=== PATIENT | female | born 1965 | race Hispanic/Latino ===

== ENCOUNTER 2021-01-02 04:24 | Inpatient (IN) | payer OTHER ==
[2021-01-02] MEDS ORDERED: Ketorolac Tromethamine 30 MG/ML VIAL ONE (04:31)
[2021-01-02 05:22] LABS: Hemoglobin 14.5 g/dL (12.0-16.0); Mean Corpuscular HGB CONC 32.7 g/dL (32.0-36.0); Mean Corpuscular Hemoglobin 29.8 pg (27.0-31.0); Mean Corpuscular Volume 91.1 fL (78.0-98.0); Mean Platelet Volume 7.6 fL (7.4-10.4); Platelet Count 522 thou/uL (130-400); RBC Distribution Width 12.2 % (11.5-14.5); Red Blood Cell (RBC) Count 4.87 mill/uL (4.20-5.40); White Blood Cell (WBC) Count 31.9 thou/uL (4.8-10.8)
[2021-01-02 05:25] LABS: ALT (SGPT) 14 U/L (8-55); AST (SGOT) 12 U/L (5-34); Albumin 3.6 g/dL (3.5-5.0); Alkaline Phosphatase 103 U/L (40-110); Anion Gap 11 mmol/L (10-20); BUN (Urea Nitrogen) 13 mg/dL (9.8-20.1); Band 4 % (5-11); Bilirubin, Total 0.5 mg/dL (0.2-1.2); Calc. Creatinine Clearance 0 mL/min (70-130); Calcium 10.4 mg/dL (7.8-10.44); Carbon Dioxide 33 mmol/L (22-29); Chloride 95 mmol/L (98-107); Globulin 3.7 g/dL (2.4-3.5); Glucose 292 mg/dL (70-105); Lipase 19 U/L (8-78); Lymphocytes 8 % (21-51); MDiff Complete? YES; Monocytes 4 % (0-10); Neutrophil 84 % (42-75); Platelet Morphology Comment Appears Increased; Potassium 3.6 mmol/L (3.5-5.1); Protein, Total 7.3 g/dL (6.0-8.3); RBC Morphology Normal; Sodium 135 mmol/L (136-145)
[2021-01-02] MEDS ORDERED: Cefepime 2 GM VIAL ONE (05:33)
[2021-01-02 08:16] LABS: Troponin I 0.016 ng/mL (< 0.028)
[2021-01-02 09:15] LABS: Bacteria/HPF None Seen HPF (None Seen); Bilirubin Negative (Negative); Blood, Urine Negative (Negative); Clarity Clear (Clear); Glucose, Urine (Dipstick) Normal (Negative); Ketone, Urine Negative (Negative); Leukocyte Negative Leu/uL (Negative); Nitrite Negative (Negative); Protein, Urine (Dipstick) 70 mg/dL (Neg-Trace); Squamous Epithelial 0-3 HPF (0-3); Urobilinogen Normal mg/dL (Less than 2); WBC/HPF None Seen HPF (0-3); pH, Urine 6.5 (5.0-9.0)
[2021-01-02 09:17] LABS: Specific Gravity, Urine 1.064 (1.002-1.036)
[2021-01-02] MEDS ORDERED: Acetaminophen 325 MG TAB PO PRN (09:17)
[2021-01-02] MEDS ORDERED: methylPREDNISolone Sod Succ 40 MG VIAL IVP SCH (09:30)
[2021-01-02 09:38] LABS: SARS-CoV-2 NAA Rapid Test Not Detected (NotDetected)
[2021-01-02 09:41] LABS: Actual Bicarbonate (HCO3a) 26.9 mEq/L (22-28); Analyzer IN Cardio ER; Base Excess (BEa) 3.1 mEq/L (-2.0 to +3.0); CO2 Tension 38.1 mmHg (35.0-45.0); Calcium, Ionized (arterial) 1.25 mmol/L (1.12-1.30); Carboxyhemoglobin (COHb) 1.2 gm% (0.0-3.0); Hemoglobin (Hb) 14.9 g/dL (12.0-16.0); pH, Arterial 7.47 (7.35-7.45)
[2021-01-02 09:47] LABS: ALV-art Gradient 48.405 mmHg (0-20); O2 Tension (PaO2), arterial 53.7 mmHg (80.0-100.0); Puncture Site LRA
[2021-01-02 10:14] LABS: Cocaine Metabolite Screen Not Detected (NotDetected); Medtox Reader # READER 1; Methamphetamine Detected (NotDetected); Phencyclidine (PCP) Not Detected (NotDetected); THC/Cannabinoid Screen Not Detected (NotDetected)
[2021-01-02 10:15] LABS: Amphetamine Detected (NotDetected); Barbiturates Screen Not Detected (NotDetected); Benzodiazepine Screen Detected (NotDetected); Medtox Control Line Valid? VALID (VALID); Methadone Not Detected (NotDetected); Opiate Screen Not Detected (NotDetected); Oxycodone Screen Not Detected (NotDetected); Tricyclic Screen Not Detected (NotDetected)
[2021-01-02 10:25] LABS: Lactic Acid 2.3 mmol/L (0.5-2.2)
[2021-01-02] MEDS ORDERED: methylPREDNISolone Sod Succ 40 MG VIAL ONE (11:44)
[2021-01-02] MEDS: Sodium Chloride 0.9% 1,000 ML IV SCH ×2 (11:51→23:18)
[2021-01-02 12:18] LABS: Troponin I Less than 0.010 ng/mL (< 0.028)
[2021-01-02] MEDS: Nicotine 14 MG PATCH TD SCH (13:14)
[2021-01-02] MEDS ORDERED: Acetaminophen 325 MG TAB ONE (13:26)
[2021-01-02] MEDS ORDERED: Iopamidol 370 76% 100 ML VIAL ONE (14:47)
[2021-01-02] MEDS: Cefepime 2 GM in Sodium Chloride 0.9% 100 ML IVPB SCH (18:00)
[2021-01-02] MEDS: methylPREDNISolone Sod Succ 40 MG VIAL IVP SCH (18:01)
[2021-01-02] MEDS: Vancomycin HCl 1.25 GM in Sodium Chloride 0.9% 250 ML 250 ML IVPB SCH (19:06)
[2021-01-03] MEDS: methylPREDNISolone Sod Succ 40 MG VIAL IVP SCH ×4 (00:15→18:22)
[2021-01-03 04:18] LABS: Hemoglobin 14.2 g/dL (12.0-16.0); Mean Corpuscular HGB CONC 31.3 g/dL (32.0-36.0); Mean Corpuscular Hemoglobin 28.3 pg (27.0-31.0); Mean Corpuscular Volume 90.6 fL (78.0-98.0); Mean Platelet Volume 7.8 fL (7.4-10.4); Platelet Count 465 thou/uL (130-400); RBC Distribution Width 12.2 % (11.5-14.5); White Blood Cell (WBC) Count 25.8 thou/uL (4.8-10.8)
[2021-01-03 04:32] LABS: Anion Gap 13 mmol/L (10-20); BUN (Urea Nitrogen) 11 mg/dL (9.8-20.1); Calc. Creatinine Clearance 0 mL/min (70-130); Calcium 9.4 mg/dL (7.8-10.44); Carbon Dioxide 17 mmol/L (22-29); Chloride 103 mmol/L (98-107); Glucose 252 mg/dL (70-105); Potassium 4.1 mmol/L (3.5-5.1); Sodium 129 mmol/L (136-145)
[2021-01-03 04:38] LABS: Band 1 % (5-11); Lymphocytes 2 % (21-51); MDiff Complete? YES; Monocytes 1 % (0-10); Neutrophil 96 % (42-75); Platelet Morphology Comment Appears Increased
[2021-01-03] MEDS: Cefepime 2 GM in Sodium Chloride 0.9% 100 ML IVPB SCH ×2 (05:12→18:22)
[2021-01-03] MEDS: Vancomycin HCl 1.25 GM in Sodium Chloride 0.9% 250 ML 250 ML IVPB SCH ×2 (06:34→20:57)
[2021-01-03] MEDS: Sodium Chloride 0.9% 1,000 ML IV SCH ×2 (08:42→18:22)
[2021-01-03] MEDS: Nicotine 14 MG PATCH TD SCH (08:42)
[2021-01-03] MEDS: Acetaminophen 500 MG TAB PO PRN (18:27)
[2021-01-04] MEDS: methylPREDNISolone Sod Succ 40 MG VIAL IVP SCH ×5 (00:17→23:26)
[2021-01-04] MEDS: Sodium Chloride 0.9% 1,000 ML IV SCH ×2 (00:19→12:24)
[2021-01-04] MEDS: Vancomycin 1.5 GRAM/300 ML BAG 1.5 GM in Premix Bag 1 BAG IVPB SCH ×2 (03:48→16:44)
[2021-01-04] MEDS: Cefepime 2 GM in Sodium Chloride 0.9% 100 ML IVPB SCH ×2 (05:35→16:51)
[2021-01-04 05:51] LABS: Anion Gap 12 mmol/L (10-20); BUN (Urea Nitrogen) 10 mg/dL (9.8-20.1); Calc. Creatinine Clearance 0 mL/min (70-130); Calcium 9.2 mg/dL (7.8-10.44); Carbon Dioxide 23 mmol/L (22-29); Chloride 102 mmol/L (98-107); Glucose 245 mg/dL (70-105); Potassium 3.9 mmol/L (3.5-5.1); Sodium 133 mmol/L (136-145)
[2021-01-04 05:58] LABS: Band 8 % (5-11); Hemoglobin 14.2 g/dL (12.0-16.0); Lymphocytes 5 % (21-51); MDiff Complete? YES; Mean Corpuscular HGB CONC 30.7 g/dL (32.0-36.0); Mean Corpuscular Volume 91.1 fL (78.0-98.0); Mean Platelet Volume 7.9 fL (7.4-10.4); Monocytes 1 % (0-10); Neutrophil 86 % (42-75); Platelet Count 496 thou/uL (130-400); RBC Distribution Width 12.3 % (11.5-14.5); Red Blood Cell (RBC) Count 5.09 mill/uL (4.20-5.40); White Blood Cell (WBC) Count 27.7 thou/uL (4.8-10.8)
[2021-01-04] MEDS: Nicotine 14 MG PATCH TD SCH (08:25)
[2021-01-04] MEDS: Lorazepam 2 MG/ML VIAL SLOW IVP PRN ×2 (08:37→17:14)
[2021-01-04] MEDS ORDERED: hydrALAZINE 20 MG/ML VIAL SLOW IVP PRN (12:29)
[2021-01-04] MEDS ORDERED: Amlodipine 5 MG TAB PO SCH (12:45)
[2021-01-04] MEDS: Acetaminophen 500 MG TAB PO PRN (17:13)
[2021-01-04] MEDS ORDERED: Furosemide 40 MG/4 ML VIAL SLOW IVP SCH (18:30)
[2021-01-04] MEDS ORDERED: Furosemide 40 MG/4 ML VIAL ONE (18:36)
[2021-01-04] MEDS ORDERED: Senokot S 8.6-50 MG TAB PO PRN (20:49)
[2021-01-05] MEDS: Vancomycin 1.5 GRAM/300 ML BAG 1.5 GM in Premix Bag 1 BAG IVPB SCH ×2 (03:00→15:48)
[2021-01-05] MEDS: Cefepime 2 GM in Sodium Chloride 0.9% 100 ML IVPB SCH ×2 (04:29→15:47)
[2021-01-05] MEDS: methylPREDNISolone Sod Succ 40 MG VIAL IVP SCH ×3 (04:29→18:53)
[2021-01-05 08:11] LABS: Base Excess (BEa) 2.1 mEq/L (-2.0 to +3.0); CO2 Tension 38.6 mmHg (35.0-45.0); Calcium, Ionized (arterial) 1.23 mmol/L (1.12-1.30); Carboxyhemoglobin (COHb) 0.6 gm% (0.0-3.0); Hemoglobin (Hb) 16.4 g/dL (12.0-16.0); Potassium - ABG Lab 3.87 mmol/L (3.70-5.30); pH, Arterial 7.45 (7.35-7.45)
[2021-01-05 08:14] LABS: O2 Tension (PaO2), arterial 48.1 mmHg (80.0-100.0)
[2021-01-05 08:15] LABS: Puncture Site LRA
[2021-01-05 08:18] LABS: Hemoglobin 15.7 g/dL (12.0-16.0); Mean Corpuscular HGB CONC 30.8 g/dL (32.0-36.0); Mean Corpuscular Hemoglobin 27.7 pg (27.0-31.0); Mean Corpuscular Volume 90.2 fL (78.0-98.0); Mean Platelet Volume 7.7 fL (7.4-10.4); Platelet Count 567 thou/uL (130-400); RBC Distribution Width 12.5 % (11.5-14.5); Red Blood Cell (RBC) Count 5.66 mill/uL (4.20-5.40)
[2021-01-05] MEDS: Nicotine 14 MG PATCH TD SCH ×2 (08:30→09:23)
[2021-01-05] MEDS: Amlodipine 5 MG TAB PO SCH (08:30)
[2021-01-05] MEDS: Famotidine 20 MG TAB PO SCH ×2 (08:30→21:57)
[2021-01-05 08:39] LABS: Lymphocytes 1 % (21-51); MDiff Complete? YES; Monocytes 1 % (0-10); Neutrophil 98 % (42-75); Platelet Morphology Comment Appears Increased; RBC Morphology Normal
[2021-01-05 08:42] LABS: Anion Gap 12 mmol/L (10-20); BUN (Urea Nitrogen) 14 mg/dL (9.8-20.1); Calc. Creatinine Clearance 122 mL/min (70-130); Calcium 9.5 mg/dL (7.8-10.44); Carbon Dioxide 25 mmol/L (22-29); Chloride 101 mmol/L (98-107); Glucose 336 mg/dL (70-105); Potassium 3.9 mmol/L (3.5-5.1); Sodium 134 mmol/L (136-145)
[2021-01-05 09:07] LABS: SARS-CoV-2 NAA Rapid Test Not Detected (NotDetected)
[2021-01-05] MEDS ORDERED: Electrolyte Replacement Protocol 1 EACH FS PRN (14:45)
[2021-01-05] MEDS ORDERED: Potassium Phosphate 15 MMOL in Sodium Chloride 0.9% 250 ML 250 ML IVPB PRN (14:46)
[2021-01-05] MEDS ORDERED: Magnesium 2 GM/50 ML 2 GM in Premix Bag 1 BAG IVPB PRN (14:51)
[2021-01-05 15:25] LABS: Vancomycin, Trough 12.7 ug/mL
[2021-01-05] MEDS: Azithromycin 500 MG in Sodium Chloride 0.9% 250 ML 250 ML IVPB SCH (15:27)
[2021-01-05] MEDS: Lorazepam 2 MG/ML VIAL SLOW IVP PRN (15:32)
[2021-01-05 16:38] LABS: SARS-CoV-2 PCR by NAA Not Detected (NotDetected)
[2021-01-05 17:02] LABS: Legionella Urinary Ag Negative (Negative); Strep pneumo Urine Ag NEGATIVE (NEGATIVE)
[2021-01-05] MEDS ORDERED: Albuterol 200 PUFF (6.7GM INHALER) INH SCH (19:45)
[2021-01-05] MEDS: Mometasone 200 MCG/Formoterol 5 MCG 120 PUFF INHALER INH SCH (19:56)
[2021-01-05] MEDS: Budesonide 0.5 MG/2 ML NEB NEB SCH (19:57)
[2021-01-05] MEDS: Enoxaparin Sodium 40 MG/0.4 ML SYRINGE SC SCH (21:57)
[2021-01-05] MEDS: guaiFENesin ER 600 MG TAB PO SCH (21:57)
[2021-01-05] MEDS: Albuterol 200 PUFF (6.7GM INHALER) INH SCH (22:02)
[2021-01-06] MEDS: methylPREDNISolone Sod Succ 40 MG VIAL IVP SCH ×5 (00:04→23:08)
[2021-01-06] MEDS: Albuterol 200 PUFF (6.7GM INHALER) INH SCH ×6 (03:46→23:58)
[2021-01-06] MEDS: Vancomycin 1.5 GRAM/300 ML BAG 1.5 GM in Premix Bag 1 BAG IVPB SCH ×2 (03:46→16:11)
[2021-01-06 04:17] LABS: Anion Gap 11 mmol/L (10-20); BUN (Urea Nitrogen) 20 mg/dL (9.8-20.1); Calc. Creatinine Clearance 122 mL/min (70-130); Calcium 8.9 mg/dL (7.8-10.44); Carbon Dioxide 25 mmol/L (22-29); Chloride 103 mmol/L (98-107); Glucose 318 mg/dL (70-105); Sodium 135 mmol/L (136-145)
[2021-01-06] MEDS: Cefepime 2 GM in Sodium Chloride 0.9% 100 ML IVPB SCH ×2 (05:24→18:10)
[2021-01-06 05:33] LABS: Band 4 % (5-11); Hemoglobin 14.2 g/dL (12.0-16.0); Lymphocytes 3 % (21-51); MDiff Complete? YES; Mean Corpuscular HGB CONC 30.9 g/dL (32.0-36.0); Mean Corpuscular Volume 90.8 fL (78.0-98.0); Mean Platelet Volume 7.9 fL (7.4-10.4); Monocytes 3 % (0-10); Neutrophil 90 % (42-75); Platelet Count 512 thou/uL (130-400); RBC Distribution Width 12.5 % (11.5-14.5); Red Blood Cell (RBC) Count 5.08 mill/uL (4.20-5.40); White Blood Cell (WBC) Count 22.3 thou/uL (4.8-10.8)
[2021-01-06] MEDS: Budesonide 0.5 MG/2 ML NEB NEB SCH ×2 (07:57→18:57)
[2021-01-06] MEDS: Folic Acid 1 MG TAB PO SCH (08:03)
[2021-01-06] MEDS: guaiFENesin ER 600 MG TAB PO SCH ×2 (08:03→20:19)
[2021-01-06] MEDS: Famotidine 20 MG TAB PO SCH ×2 (08:03→20:19)
[2021-01-06] MEDS: Thiamine 100 MG TAB PO SCH (08:03)
[2021-01-06] MEDS: Amlodipine 5 MG TAB PO SCH (08:03)
[2021-01-06] MEDS: Mometasone 200 MCG/Formoterol 5 MCG 120 PUFF INHALER INH SCH ×2 (08:25→18:56)
[2021-01-06] MEDS ORDERED: cloNIDine 0.1 MG TAB PO SCH (09:00)
[2021-01-06] MEDS ORDERED: Lantus 1000 UNITS/10 ML VIAL SC SCH (09:00)
[2021-01-06] MEDS ORDERED: HumaLOG 300 UNITS/3 ML VIAL SC PRN (09:33)
[2021-01-06] MEDS ORDERED: Dextrose 5% in Water 1,000 ML IV PRN (09:33)
[2021-01-06] MEDS ORDERED: Dextrose 50% Abboject 50 ML SYRINGE SLOW IVP PRN (09:33)
[2021-01-06] MEDS: Nicotine 14 MG PATCH TD SCH (11:45)
[2021-01-06] MEDS ORDERED: Insulin Regular 300 UNITS/3 ML VIAL SC PRN (12:30)
[2021-01-06] MEDS: Azithromycin 500 MG in Sodium Chloride 0.9% 250 ML 250 ML IVPB SCH (14:41)
[2021-01-06] MEDS: cloNIDine 0.1 MG TAB PO SCH ×2 (14:56→20:18)
[2021-01-06] MEDS ORDERED: Insulin Regular 300 UNITS/3 ML VIAL SC SCH (17:00)
[2021-01-06] MEDS: HumaLOG 300 UNITS/3 ML VIAL SC PRN ×2 (17:19→20:20)
[2021-01-06] MEDS: Enoxaparin Sodium 40 MG/0.4 ML SYRINGE SC SCH (20:19)
[2021-01-07] MEDS: Albuterol 200 PUFF (6.7GM INHALER) INH SCH ×2 (02:59→08:10)
[2021-01-07] MEDS: Vancomycin 1.5 GRAM/300 ML BAG 1.5 GM in Premix Bag 1 BAG IVPB SCH ×2 (03:30→15:20)
[2021-01-07] MEDS: Cefepime 2 GM in Sodium Chloride 0.9% 100 ML IVPB SCH ×2 (05:17→17:39)
[2021-01-07] MEDS: methylPREDNISolone Sod Succ 40 MG VIAL IVP SCH ×4 (05:19→23:48)
[2021-01-07] MEDS: HumaLOG 300 UNITS/3 ML VIAL SC PRN ×4 (05:57→20:43)
[2021-01-07] MEDS: Mometasone 200 MCG/Formoterol 5 MCG 120 PUFF INHALER INH SCH ×2 (08:10→18:49)
[2021-01-07] MEDS: Budesonide 0.5 MG/2 ML NEB NEB SCH ×2 (08:10→18:47)
[2021-01-07] MEDS: cloNIDine 0.1 MG TAB PO SCH ×3 (08:35→20:42)
[2021-01-07] MEDS: Famotidine 20 MG TAB PO SCH ×2 (08:35→20:41)
[2021-01-07] MEDS: Folic Acid 1 MG TAB PO SCH (08:35)
[2021-01-07] MEDS: guaiFENesin ER 600 MG TAB PO SCH ×2 (08:36→20:42)
[2021-01-07] MEDS: Amlodipine 5 MG TAB PO SCH (08:36)
[2021-01-07] MEDS: Thiamine 100 MG TAB PO SCH (08:36)
[2021-01-07 08:50] LABS: Hemoglobin 14.3 g/dL (12.0-16.0); Mean Corpuscular HGB CONC 31.2 g/dL (32.0-36.0); Mean Corpuscular Hemoglobin 28.3 pg (27.0-31.0); Mean Corpuscular Volume 90.8 fL (78.0-98.0); Platelet Count 545 thou/uL (130-400); RBC Distribution Width 12.6 % (11.5-14.5); Red Blood Cell (RBC) Count 5.04 mill/uL (4.20-5.40); White Blood Cell (WBC) Count 21.7 thou/uL (4.8-10.8)
[2021-01-07] MEDS: Lorazepam 2 MG/ML VIAL SLOW IVP PRN ×2 (08:51→19:32)
[2021-01-07] MEDS ORDERED: Lantus 1000 UNITS/10 ML VIAL SC SCH (09:00)
[2021-01-07 09:05] LABS: Anion Gap 12 mmol/L (10-20); BUN (Urea Nitrogen) 23 mg/dL (9.8-20.1); Calc. Creatinine Clearance 112 mL/min (70-130); Calcium 8.7 mg/dL (7.8-10.44); Carbon Dioxide 27 mmol/L (22-29); Chloride 102 mmol/L (98-107); Glucose 309 mg/dL (70-105); Potassium 4.3 mmol/L (3.5-5.1); Sodium 137 mmol/L (136-145)
[2021-01-07] MEDS: Lantus 1000 UNITS/10 ML VIAL SC SCH (09:26)
[2021-01-07] MEDS: Nicotine 14 MG PATCH TD SCH (09:28)
[2021-01-07] MEDS ORDERED: Albuterol 200 PUFF (6.7GM INHALER) INH PRN (09:39)
[2021-01-07 10:45] LABS: Band 1 % (5-11); Lymphocytes 4 % (21-51); MDiff Complete? YES; Monocytes 2 % (0-10); Neutrophil 92 % (42-75); Platelet Morphology Comment Appears Increased; Polychromasia SLIGHT = 2-3 cells (100X) (0-2/hpf); Reactive Lymphocytes 1 % (0-10)
[2021-01-07] MEDS: Azithromycin 500 MG in Sodium Chloride 0.9% 250 ML 250 ML IVPB SCH (14:15)
[2021-01-07] MEDS: Enoxaparin Sodium 40 MG/0.4 ML SYRINGE SC SCH (20:42)
[2021-01-08] MEDS: Vancomycin 1.5 GRAM/300 ML BAG 1.5 GM in Premix Bag 1 BAG IVPB SCH (04:20)
[2021-01-08 04:47] LABS: Anion Gap 12 mmol/L (10-20); BUN (Urea Nitrogen) 21 mg/dL (9.8-20.1); Calc. Creatinine Clearance 125 mL/min (70-130); Calcium 8.3 mg/dL (7.8-10.44); Carbon Dioxide 20 mmol/L (22-29); Chloride 104 mmol/L (98-107); Glucose 331 mg/dL (70-105); Potassium 4.3 mmol/L (3.5-5.1); Sodium 132 mmol/L (136-145)
[2021-01-08 05:09] LABS: Band 4 % (5-11); Hemoglobin 14.1 g/dL (12.0-16.0); Lymphocytes 3 % (21-51); MDiff Complete? YES; Mean Corpuscular HGB CONC 31.1 g/dL (32.0-36.0); Mean Corpuscular Volume 90.1 fL (78.0-98.0); Mean Platelet Volume 7.6 fL (7.4-10.4); Monocytes 3 % (0-10); Neutrophil 90 % (42-75); Platelet Count 558 thou/uL (130-400); RBC Distribution Width 12.6 % (11.5-14.5); Red Blood Cell (RBC) Count 5.02 mill/uL (4.20-5.40); White Blood Cell (WBC) Count 21.4 thou/uL (4.8-10.8)
[2021-01-08] MEDS: Cefepime 2 GM in Sodium Chloride 0.9% 100 ML IVPB SCH ×2 (06:00→16:52)
[2021-01-08] MEDS: methylPREDNISolone Sod Succ 40 MG VIAL IVP SCH ×4 (06:00→23:36)
[2021-01-08] MEDS: HumaLOG 300 UNITS/3 ML VIAL SC PRN ×4 (06:02→20:02)
[2021-01-08] MEDS: Budesonide 0.5 MG/2 ML NEB NEB SCH ×2 (07:21→18:37)
[2021-01-08] MEDS: Mometasone 200 MCG/Formoterol 5 MCG 120 PUFF INHALER INH SCH ×2 (07:22→18:39)
[2021-01-08] MEDS: cloNIDine 0.1 MG TAB PO SCH ×3 (09:09→20:00)
[2021-01-08] MEDS: Famotidine 20 MG TAB PO SCH ×2 (09:09→20:00)
[2021-01-08] MEDS: guaiFENesin ER 600 MG TAB PO SCH ×2 (09:10→20:00)
[2021-01-08] MEDS: Thiamine 100 MG TAB PO SCH (09:10)
[2021-01-08] MEDS: Folic Acid 1 MG TAB PO SCH (09:10)
[2021-01-08] MEDS: Amlodipine 5 MG TAB PO SCH (09:10)
[2021-01-08] MEDS: Lantus 1000 UNITS/10 ML VIAL SC SCH (09:11)
[2021-01-08] MEDS: Azithromycin 500 MG in Sodium Chloride 0.9% 250 ML 250 ML IVPB SCH (09:11)
[2021-01-08] MEDS: Lorazepam 2 MG/ML VIAL SLOW IVP PRN (09:16)
[2021-01-08] MEDS: Nicotine 14 MG PATCH TD SCH (09:46)
[2021-01-08] MEDS ORDERED: Furosemide 40 MG/4 ML VIAL SLOW IVP SCH (10:15)
[2021-01-08] MEDS ORDERED: Lantus 1000 UNITS/10 ML VIAL SC SCH (10:30)
[2021-01-08] MEDS ORDERED: Amlodipine 10 MG TAB PO SCH (10:30)
[2021-01-08] MEDS: clonazePAM 0.5 MG TAB PO PRN ×2 (16:55→20:49)
[2021-01-08] MEDS: Doxycycline 100 MG CAP PO SCH (20:00)
[2021-01-08] MEDS: Enoxaparin Sodium 40 MG/0.4 ML SYRINGE SC SCH (20:01)
[2021-01-09 03:54] LABS: Anion Gap 11 mmol/L (10-20); BUN (Urea Nitrogen) 20 mg/dL (9.8-20.1); Calc. Creatinine Clearance 128 mL/min (70-130); Calcium 8.3 mg/dL (7.8-10.44); Carbon Dioxide 26 mmol/L (22-29); Chloride 99 mmol/L (98-107); Glucose 323 mg/dL (70-105); Potassium 4.1 mmol/L (3.5-5.1); Sodium 132 mmol/L (136-145)
[2021-01-09 05:06] LABS: Hemoglobin 14.4 g/dL (12.0-16.0); Mean Corpuscular HGB CONC 32.6 g/dL (32.0-36.0); Mean Corpuscular Hemoglobin 29.3 pg (27.0-31.0); Mean Corpuscular Volume 89.9 fL (78.0-98.0); White Blood Cell (WBC) Count 23.1 thou/uL (4.8-10.8)
[2021-01-09 05:07] LABS: Band 1 % (5-11); Lymphocytes 5 % (21-51); MDiff Complete? YES; Mean Platelet Volume 7.5 fL (7.4-10.4); Metamyelocyte 1 % (0-0); Monocytes 2 % (0-10); Myelocyte 2 % (0-0); Neutrophil 89 % (42-75); Platelet Count 552 thou/uL (130-400); RBC Distribution Width 12.5 % (11.5-14.5)
[2021-01-09] MEDS: Cefepime 2 GM in Sodium Chloride 0.9% 100 ML IVPB SCH ×2 (05:08→16:04)
[2021-01-09] MEDS: methylPREDNISolone Sod Succ 40 MG VIAL IVP SCH ×2 (05:09→22:02)
[2021-01-09] MEDS: HumaLOG 300 UNITS/3 ML VIAL SC PRN ×3 (06:22→16:25)
[2021-01-09] MEDS: Budesonide 0.5 MG/2 ML NEB NEB SCH ×2 (06:59→19:38)
[2021-01-09] MEDS: Mometasone 200 MCG/Formoterol 5 MCG 120 PUFF INHALER INH SCH ×2 (07:00→19:36)
[2021-01-09] MEDS: Amlodipine 10 MG TAB PO SCH (07:48)
[2021-01-09] MEDS: Lantus 1000 UNITS/10 ML VIAL SC SCH (07:49)
[2021-01-09] MEDS: Doxycycline 100 MG CAP PO SCH ×2 (07:49→22:02)
[2021-01-09] MEDS: Famotidine 20 MG TAB PO SCH ×2 (07:49→22:02)
[2021-01-09] MEDS: Thiamine 100 MG TAB PO SCH (07:49)
[2021-01-09] MEDS: guaiFENesin ER 600 MG TAB PO SCH ×2 (07:49→22:03)
[2021-01-09] MEDS: cloNIDine 0.1 MG TAB PO SCH ×3 (07:49→22:02)
[2021-01-09] MEDS: Folic Acid 1 MG TAB PO SCH (07:49)
[2021-01-09] MEDS ORDERED: Lantus 1000 UNITS/10 ML VIAL SC SCH (09:00)
[2021-01-09] MEDS: Lorazepam 2 MG/ML VIAL SLOW IVP PRN (09:00)
[2021-01-09] MEDS: Azithromycin 500 MG in Sodium Chloride 0.9% 250 ML 250 ML IVPB SCH (09:43)
[2021-01-09] MEDS: Nicotine 14 MG PATCH TD SCH (09:43)
[2021-01-09] MEDS: clonazePAM 0.5 MG TAB PO PRN (11:16)
[2021-01-09] MEDS: Enoxaparin Sodium 40 MG/0.4 ML SYRINGE SC SCH (22:01)
[2021-01-10] MEDS: clonazePAM 0.5 MG TAB PO PRN ×2 (03:41→19:41)
[2021-01-10] MEDS: Acetaminophen 500 MG TAB PO PRN (03:50)
[2021-01-10] MEDS: Cefepime 2 GM in Sodium Chloride 0.9% 100 ML IVPB SCH (04:01)
[2021-01-10] MEDS: Budesonide 0.5 MG/2 ML NEB NEB SCH ×2 (06:03→19:05)
[2021-01-10] MEDS: Mometasone 200 MCG/Formoterol 5 MCG 120 PUFF INHALER INH SCH ×2 (06:07→19:02)
[2021-01-10 06:22] LABS: Anion Gap 10 mmol/L (10-20); BUN (Urea Nitrogen) 17 mg/dL (9.8-20.1); Calc. Creatinine Clearance 140 mL/min (70-130); Calcium 8.3 mg/dL (7.8-10.44); Carbon Dioxide 28 mmol/L (22-29); Chloride 103 mmol/L (98-107); Glucose 142 mg/dL (70-105); Potassium 3.6 mmol/L (3.5-5.1); Sodium 137 mmol/L (136-145)
[2021-01-10 06:33] LABS: Hemoglobin 14.8 g/dL (12.0-16.0); Mean Corpuscular HGB CONC 30.8 g/dL (32.0-36.0); Mean Corpuscular Hemoglobin 28.3 pg (27.0-31.0); Mean Corpuscular Volume 91.9 fL (78.0-98.0); Mean Platelet Volume 7.4 fL (7.4-10.4); Platelet Count 579 thou/uL (130-400); RBC Distribution Width 12.7 % (11.5-14.5); Red Blood Cell (RBC) Count 5.22 mill/uL (4.20-5.40); White Blood Cell (WBC) Count 23.1 thou/uL (4.8-10.8)
[2021-01-10 07:06] LABS: Band 6 % (5-11); Lymphocytes 10 % (21-51); MDiff Complete? YES; Monocytes 8 % (0-10); Neutrophil 76 % (42-75)
[2021-01-10] MEDS: Doxycycline 100 MG CAP PO SCH ×2 (08:48→19:41)
[2021-01-10] MEDS: Azithromycin 500 MG in Sodium Chloride 0.9% 250 ML 250 ML IVPB SCH (08:48)
[2021-01-10] MEDS: Thiamine 100 MG TAB PO SCH (08:48)
[2021-01-10] MEDS: Famotidine 20 MG TAB PO SCH ×2 (08:48→19:41)
[2021-01-10] MEDS: Amlodipine 10 MG TAB PO SCH (08:48)
[2021-01-10] MEDS: guaiFENesin ER 600 MG TAB PO SCH ×2 (08:48→19:42)
[2021-01-10] MEDS: Folic Acid 1 MG TAB PO SCH (08:48)
[2021-01-10] MEDS: methylPREDNISolone Sod Succ 40 MG VIAL IVP SCH (08:49)
[2021-01-10] MEDS: Nicotine 14 MG PATCH TD SCH (08:49)
[2021-01-10] MEDS: Lantus 1000 UNITS/10 ML VIAL SC SCH (08:50)
[2021-01-10] MEDS: cloNIDine 0.1 MG TAB PO SCH ×3 (08:53→19:41)
[2021-01-10 11:53] VITALS: BMI 35.4
[2021-01-10] MEDS: HumaLOG 300 UNITS/3 ML VIAL SC PRN ×3 (12:21→19:42)
[2021-01-10 17:24] LABS: Bacteria/HPF None Seen HPF (None Seen); Bilirubin Negative (Negative); Blood, Urine Negative (Negative); Clarity Clear (Clear); Glucose, Urine (Dipstick) 500 mg/dL (Negative); Ketone, Urine Negative (Negative); Leukocyte Negative Leu/uL (Negative); Nitrite Negative (Negative); Protein, Urine (Dipstick) Negative (Neg-Trace); RBC/HPF 0-3 HPF (0-3); Specific Gravity, Urine 1.007 (1.002-1.036); Squamous Epithelial 0-3 HPF (0-3); Urobilinogen Normal mg/dL (Less than 2); WBC/HPF 0-3 HPF (0-3)
[2021-01-10 17:31] LABS: Urine Culture Reflex No No
[2021-01-10] MEDS: Enoxaparin Sodium 40 MG/0.4 ML SYRINGE SC SCH (19:42)
[2021-01-11] MEDS: HumaLOG 300 UNITS/3 ML VIAL SC PRN ×2 (05:31→11:55)
[2021-01-11] MEDS: clonazePAM 0.5 MG TAB PO PRN (05:33)
[2021-01-11 06:12] LABS: Hemoglobin 15.1 g/dL (12.0-16.0); Mean Corpuscular HGB CONC 31.4 g/dL (32.0-36.0); Mean Corpuscular Hemoglobin 28.3 pg (27.0-31.0); Mean Corpuscular Volume 90.1 fL (78.0-98.0); Mean Platelet Volume 7.5 fL (7.4-10.4); Platelet Count 613 thou/uL (130-400); RBC Distribution Width 12.7 % (11.5-14.5); Red Blood Cell (RBC) Count 5.35 mill/uL (4.20-5.40); White Blood Cell (WBC) Count 29.2 thou/uL (4.8-10.8)
[2021-01-11 06:28] LABS: Lymphocytes 13 % (21-51); MDiff Complete? YES; Metamyelocyte 1 % (0-0); Monocytes 4 % (0-10); Neutrophil 82 % (42-75); Platelet Morphology Comment Appears Increased
[2021-01-11 06:33] LABS: Anion Gap 12 mmol/L (10-20); BUN (Urea Nitrogen) 16 mg/dL (9.8-20.1); Calc. Creatinine Clearance 121 mL/min (70-130); Calcium 9.1 mg/dL (7.8-10.44); Carbon Dioxide 25 mmol/L (22-29); Chloride 103 mmol/L (98-107); Glucose 183 mg/dL (70-105); Potassium 4.4 mmol/L (3.5-5.1); Sodium 136 mmol/L (136-145)
[2021-01-11] MEDS: Mometasone 200 MCG/Formoterol 5 MCG 120 PUFF INHALER INH SCH (07:17)
[2021-01-11] MEDS: Budesonide 0.5 MG/2 ML NEB NEB SCH (07:17)
[2021-01-11] MEDS: Famotidine 20 MG TAB PO SCH (07:38)
[2021-01-11] MEDS: cloNIDine 0.1 MG TAB PO SCH (07:38)
[2021-01-11] MEDS: guaiFENesin ER 600 MG TAB PO SCH (07:39)
[2021-01-11] MEDS: Doxycycline 100 MG CAP PO SCH (07:39)
[2021-01-11] MEDS: Folic Acid 1 MG TAB PO SCH (07:39)
[2021-01-11] MEDS: Amlodipine 10 MG TAB PO SCH (07:39)
[2021-01-11] MEDS: Thiamine 100 MG TAB PO SCH (07:39)
[2021-01-11] MEDS: Lantus 1000 UNITS/10 ML VIAL SC SCH (07:41)
[2021-01-11] MEDS: Nicotine 14 MG PATCH TD SCH (07:44)
[2021-01-11] MEDS ORDERED: predniSONE 20 MG TAB PO SCH (08:00)
[2021-01-11] MEDS ORDERED: diphenhydrAMINE 50 MG CAP PO SCH (11:30)
[2021-01-11 11:46] VITALS: BP 113/76; TEMP 97.6
== END 2021-01-11 13:19 | disposition home or self-care (01) | DRG 871 ==
LOC: ERS 04:24 → ERHOLD 06:27 → 2NO 15:54 → IMCU/EMU 01-05 09:07 → T4-A 01-09 20:03
PROVIDERS: ADMIT Emergency Medicine; ATTEND Internal Medicine
DX: A41.9 Sepsis, unspecified organism (principal); J18.0 Bronchopneumonia, unspecified organism; J96.01 Acute respiratory failure with hypoxia; G93.41 Metabolic encephalopathy; J44.0 Chronic obstructive pulmonary disease with (acute) lower respiratory infection; J90 Pleural effusion, not elsewhere classified; J98.11 Atelectasis; F31.9 Bipolar disorder, unspecified; F17.210 Nicotine dependence, cigarettes, uncomplicated; J20.9 Acute bronchitis, unspecified; T38.0X5A Adverse effect of glucocorticoids and synthetic analogues, initial encounter; Z20.822 Contact with and (suspected) exposure to COVID-19; E11.65 Type 2 diabetes mellitus with hyperglycemia; Z90.710 Acquired absence of both cervix and uterus; Z98.51 Tubal ligation status
CPT/HCPCS: 0240U; 36415; 36416; 36600; 51701; 70450; 71045; 71275; 80048; 80053; 80202; 80306; 81001; 81003; 81015; 82140; 82728; 82805; 83036; 83605; 83690; 83880; 84145; 84484; 85025; 85379; 87040; 87449; 87635; 87899; 93005; 93306; 94640; 94664; 96365; 96367; 96375; J0360; J0456; J0692; J1650; J1815; J1885; J1940; J2060; J2920; J3370; J3490; J7050; J7512; J7620; J7626; Q9967; U0002; U0003; U0005

== ENCOUNTER 2021-01-18 00:02 | Inpatient (IN) | payer OTHER ==
[2021-01-18] MEDS ORDERED: Cefepime 2 GM VIAL ONE (00:29)
[2021-01-18 01:06] LABS: #Basophils 0.1 thou/uL (0.0-0.2); #Eosinphils 0.1 thou/uL (0.0-0.7); #Lymphocytes 2.4 thou/uL (1.20-3.40); #Monocytes 2.1 thou/uL (0.11-0.59); %Basophils 0.4 % (0.0-1.0); %Eosinophils 0.3 % (0.0-10.0); %Lymphocytes 12.3 % (21.0-51.0); %Monocytes 10.8 % (0.0-10.0); %Neutrophils 76.2 % (42.0-75.0); Hemoglobin 13.5 g/dL (12.0-16.0); Mean Corpuscular HGB CONC 32.3 g/dL (32.0-36.0); Mean Corpuscular Hemoglobin 28.9 pg (27.0-31.0); Mean Corpuscular Volume 89.3 fL (78.0-98.0); Mean Platelet Volume 7.9 fL (7.4-10.4); Platelet Count 340 thou/uL (130-400); Red Blood Cell (RBC) Count 4.69 mill/uL (4.20-5.40); White Blood Cell (WBC) Count 19.7 thou/uL (4.8-10.8)
[2021-01-18 01:11] LABS: ALT (SGPT) 25 U/L (8-55); AST (SGOT) 12 U/L (5-34); Alkaline Phosphatase 75 U/L (40-110); Anion Gap 12 mmol/L (10-20); BUN (Urea Nitrogen) 11 mg/dL (9.8-20.1); Bilirubin, Total 0.5 mg/dL (0.2-1.2); Calc. Creatinine Clearance 0 mL/min (70-130); Calcium 8.3 mg/dL (7.8-10.44); Carbon Dioxide 21 mmol/L (22-29); Chloride 102 mmol/L (98-107); Glucose 238 mg/dL (70-105); Potassium 4.3 mmol/L (3.5-5.1); Sodium 131 mmol/L (136-145)
[2021-01-18] MEDS ORDERED: Vancomycin 1 GM/200 ML BAG ONE (01:18)
[2021-01-18] MEDS ORDERED: Fentanyl 100 MCG/2 ML VIAL ONE (01:56)
[2021-01-18 02:06] LABS: SARS-CoV-2 NAA Rapid Test Not Detected (NotDetected)
[2021-01-18 02:16] LABS: Bilirubin Negative (Negative); Blood, Urine Negative (Negative); Clarity Clear (Clear); Glucose, Urine (Dipstick) Normal (Negative); Ketone, Urine Negative (Negative); Leukocyte Negative Leu/uL (Negative); Nitrite Negative (Negative); Protein, Urine (Dipstick) 10 mg/dL (Neg-Trace); Specific Gravity, Urine 1.014 (1.002-1.036); Urobilinogen Normal mg/dL (Less than 2); pH, Urine 6.5 (5.0-9.0)
[2021-01-18] MEDS ORDERED: Sodium Chloride 0.9% 1,000 ML IV SCH (03:00)
[2021-01-18 03:06] VITALS: BMI 33.5
[2021-01-18] MEDS ORDERED: Ondansetron PF 4 MG/2 ML Vial IVP PRN (04:32)
[2021-01-18] MEDS ORDERED: hydrALAZINE 20 MG/ML VIAL SLOW IVP PRN (04:35)
[2021-01-18] MEDS: Morphine 4 MG/ML VIAL SLOW IVP PRN ×2 (05:11→14:12)
[2021-01-18] MEDS: Sodium Chloride 0.9% 1,000 ML IV SCH (05:11)
[2021-01-18] MEDS: Nicotine 21 MG PATCH TD SCH (05:12)
[2021-01-18] MEDS: HumaLOG 300 UNITS/3 ML VIAL SC PRN (06:10)
[2021-01-18] MEDS: Acetaminophen 325 MG TAB PO PRN ×3 (08:35→21:00)
[2021-01-18] MEDS: Enoxaparin Sodium 40 MG/0.4 ML SYRINGE SC SCH (08:35)
[2021-01-18] MEDS: Amlodipine 10 MG TAB PO SCH (08:36)
[2021-01-18] MEDS: Folic Acid 1 MG TAB PO SCH (08:36)
[2021-01-18] MEDS: Thiamine 100 MG TAB PO SCH (08:36)
[2021-01-18] MEDS: Famotidine 20 MG TAB PO SCH ×2 (08:36→20:50)
[2021-01-18] MEDS: metFORMIN 500 MG TAB PO SCH ×2 (08:36→17:18)
[2021-01-18] MEDS: Saccharomyces boulardii 250 MG CAP PO SCH (08:36)
[2021-01-18 08:41] LABS: PTT 30.5 sec (22.9-36.1); Prothrombin Time 13.5 sec (12.0-14.7)
[2021-01-18] MEDS ORDERED: Cefepime 2 GM in Sodium Chloride 0.9% 100 ML IVPB SCH (09:00)
[2021-01-18] MEDS ORDERED: Prevnar 13-Val Conj/PF 0.5 ML SYRINGE IM ONE (09:00)
[2021-01-18] MEDS ORDERED: cefTRIAXone\\ROCEPHIN 1 GM in Sodium Chloride 0.9% 100 ML IVPB SCH (12:00)
[2021-01-18] MEDS ORDERED: Sodium Bicarbonate 2.5 MEQ/5 ML VIAL ONE (12:18)
[2021-01-18] MEDS ORDERED: Iopamidol 370 76% 100 ML VIAL ONE (12:36)
[2021-01-18 14:30] LABS: Pleural Fluid, Amylase Less than 30 U/L (Not Available); Pleural Fluid, Glucose 178 mg/dL; Pleural Fluid, LDH 252 U/L (Not Available); Pleural Fluid, Protein 3.7 g/dL
[2021-01-18 14:49] LABS: BF Color Pink; Body Fluid Source Thoracentesis Fluid; Clarity Cloudy/Turbid (Clear); Tube # EDTA
[2021-01-18 15:17] LABS: RBC Count-Automated (BF) 22897 /cu.mm; WBC/Nucleated-Auto (BF) 458 uL
[2021-01-18 15:32] LABS: BF Segmented Neutrophils 42 %; Cell Count Non Hematic 4 %; Lymphocytes 54 %
[2021-01-19] MEDS: Acetaminophen 325 MG TAB PO PRN (01:18)
[2021-01-19] MEDS: Sodium Chloride 0.9% 1,000 ML IV SCH ×3 (01:19→19:20)
[2021-01-19] MEDS: Nicotine 21 MG PATCH TD SCH (06:01)
[2021-01-19 08:44] LABS: Band 1 % (5-11); Eosinophils 4 % (0-10); Hemoglobin 13.2 g/dL (12.0-16.0); Lymphocytes 1 % (21-51); MDiff Complete? YES; Mean Corpuscular HGB CONC 31.9 g/dL (32.0-36.0); Mean Corpuscular Volume 90.8 fL (78.0-98.0); Mean Platelet Volume 7.5 fL (7.4-10.4); Monocytes 8 % (0-10); Neutrophil 86 % (42-75); Platelet Count 283 thou/uL (130-400); Platelet Morphology Comment Appears Adequate; RBC Distribution Width 12.9 % (11.5-14.5); RBC Morphology Normal; Red Blood Cell (RBC) Count 4.54 mill/uL (4.20-5.40); White Blood Cell (WBC) Count 12.4 thou/uL (4.8-10.8)
[2021-01-19] MEDS: Thiamine 100 MG TAB PO SCH (09:17)
[2021-01-19] MEDS: Famotidine 20 MG TAB PO SCH ×2 (09:17→19:48)
[2021-01-19] MEDS: metFORMIN 500 MG TAB PO SCH ×2 (09:17→17:03)
[2021-01-19] MEDS: Amlodipine 10 MG TAB PO SCH (09:17)
[2021-01-19] MEDS: Azithromycin 250 MG TAB PO SCH (09:18)
[2021-01-19] MEDS: Enoxaparin Sodium 40 MG/0.4 ML SYRINGE SC SCH (09:18)
[2021-01-19] MEDS: Folic Acid 1 MG TAB PO SCH (09:18)
[2021-01-19] MEDS: Saccharomyces boulardii 250 MG CAP PO SCH (09:18)
[2021-01-19] MEDS ORDERED: Loperamide HCl 2 MG CAP PO PRN (10:02)
[2021-01-19] MEDS ORDERED: Sodium Chloride 0.65% Nasal 44 ML BOT EA NARE PRN (10:02)
[2021-01-19] MEDS ORDERED: Calcium Carbonate 500 MG ChewTAB PO PRN (10:02)
[2021-01-19] MEDS ORDERED: Loratadine 10 MG TAB PO PRN (10:02)
[2021-01-19] MEDS ORDERED: Zolpidem Tartrate 5 MG TAB PO PRN (10:02)
[2021-01-19] MEDS: Ketorolac Tromethamine 30 MG/ML VIAL IVP PRN ×2 (10:36→19:47)
[2021-01-19] MEDS: Cefepime 2 GM in Sodium Chloride 0.9% 100 ML IVPB SCH ×2 (11:05→23:37)
[2021-01-19 11:30] LABS: Albumin 2.6 g/dL (3.5-5.0)
[2021-01-19 11:31] LABS: Chloride 104 mmol/L (98-107); Potassium 4.2 mmol/L (3.5-5.1); Sodium 135 mmol/L (136-145)
[2021-01-19 11:32] LABS: Calcium 8.7 mg/dL (7.8-10.44); Glucose 229 mg/dL (70-105)
[2021-01-19 11:33] LABS: Globulin 3.1 g/dL (2.4-3.5)
[2021-01-19 11:34] LABS: Anion Gap 11 mmol/L (10-20); Bilirubin, Total 0.2 mg/dL (0.2-1.2); Carbon Dioxide 24 mmol/L (22-29)
[2021-01-19 11:35] LABS: Alkaline Phosphatase 82 U/L (40-110)
[2021-01-19 11:36] LABS: Calc. Creatinine Clearance 133 mL/min (70-130)
[2021-01-19 11:37] LABS: BUN (Urea Nitrogen) 8 mg/dL (9.8-20.1)
[2021-01-19 11:38] LABS: ALT (SGPT) 30 U/L (8-55); AST (SGOT) 21 U/L (5-34)
[2021-01-19 11:49] LABS: Protein, Total 5.7 g/dL (6.0-8.3)
[2021-01-19] MEDS: Cepastat Lozenges 1 LOZ PO PRN ×2 (14:37→17:02)
[2021-01-19 14:43] LABS: Legionella Urinary Ag Negative (Negative); Strep pneumo Urine Ag NEGATIVE (NEGATIVE)
[2021-01-19] MEDS: Lorazepam 1 MG TAB PO PRN (20:26)
[2021-01-20] MEDS: Acetaminophen 325 MG TAB PO PRN ×3 (00:50→14:14)
[2021-01-20] MEDS: Sodium Chloride 0.9% 1,000 ML IV SCH (05:37)
[2021-01-20 05:56] LABS: #Basophils 0.1 thou/uL (0.0-0.2); #Eosinphils 0.3 thou/uL (0.0-0.7); #Lymphocytes 1.3 thou/uL (1.20-3.40); #Monocytes 0.8 thou/uL (0.11-0.59); #Neutrophils 8.4 thou/uL (1.40-6.50); %Basophils 0.5 % (0.0-1.0); %Monocytes 7.3 % (0.0-10.0); %Neutrophils 77.2 % (42.0-75.0); Hemoglobin 12.1 g/dL (12.0-16.0); Mean Corpuscular HGB CONC 32.7 g/dL (32.0-36.0); Mean Corpuscular Hemoglobin 29.6 pg (27.0-31.0); Mean Corpuscular Volume 90.6 fL (78.0-98.0); Mean Platelet Volume 7.5 fL (7.4-10.4); Platelet Count 258 thou/uL (130-400); White Blood Cell (WBC) Count 10.9 thou/uL (4.8-10.8)
[2021-01-20] MEDS: Nicotine 21 MG PATCH TD SCH (06:00)
[2021-01-20 06:29] LABS: ALT (SGPT) 45 U/L (8-55); AST (SGOT) 30 U/L (5-34); Albumin 2.6 g/dL (3.5-5.0); Alkaline Phosphatase 91 U/L (40-110); Anion Gap 11 mmol/L (10-20); BUN (Urea Nitrogen) 8 mg/dL (9.8-20.1); Bilirubin, Total 0.3 mg/dL (0.2-1.2); CRP (Inflammatory) 15.72 mg/dL (= or < 0.5); Calc. Creatinine Clearance 157 mL/min (70-130); Calcium 8.4 mg/dL (7.8-10.44); Carbon Dioxide 21 mmol/L (22-29); Chloride 108 mmol/L (98-107); Globulin 2.9 g/dL (2.4-3.5); Glucose 120 mg/dL (70-105); Potassium 4.2 mmol/L (3.5-5.1); Protein, Total 5.5 g/dL (6.0-8.3); Sodium 136 mmol/L (136-145)
[2021-01-20] MEDS: Cepastat Lozenges 1 LOZ PO PRN ×2 (09:09→12:39)
[2021-01-20] MEDS: Famotidine 20 MG TAB PO SCH ×2 (09:09→21:45)
[2021-01-20] MEDS: metFORMIN 500 MG TAB PO SCH ×2 (09:09→16:44)
[2021-01-20] MEDS: Saccharomyces boulardii 250 MG CAP PO SCH (09:10)
[2021-01-20] MEDS: Enoxaparin Sodium 40 MG/0.4 ML SYRINGE SC SCH (09:10)
[2021-01-20] MEDS: Azithromycin 250 MG TAB PO SCH (09:10)
[2021-01-20] MEDS: Thiamine 100 MG TAB PO SCH (09:10)
[2021-01-20] MEDS: Folic Acid 1 MG TAB PO SCH (09:10)
[2021-01-20] MEDS: Cefepime 2 GM in Sodium Chloride 0.9% 100 ML IVPB SCH ×2 (10:48→21:48)
[2021-01-20] MEDS: Nystatin 500,000 UNITS/5 ML UDCUP SSP SCH ×3 (12:37→21:55)
[2021-01-20] MEDS: HumaLOG 300 UNITS/3 ML VIAL SC PRN (16:45)
[2021-01-20] MEDS: GUAIFENESIN SF SOLN 200 MG/10 ML UDCUP PO PRN (21:44)
[2021-01-20] MEDS: Benzonatate 100 MG CAP PO PRN (21:45)
[2021-01-20] MEDS: Lorazepam 1 MG TAB PO PRN (21:45)
[2021-01-20] MEDS: HYDROcodone/Acetaminophen 5/325 mg Tablet PO PRN (21:54)
[2021-01-21] MEDS: Nicotine 21 MG PATCH TD SCH (06:25)
[2021-01-21 06:42] LABS: Anion Gap 10 mmol/L (10-20); BUN (Urea Nitrogen) 7 mg/dL (9.8-20.1); Calc. Creatinine Clearance 149 mL/min (70-130); Calcium 8.9 mg/dL (7.8-10.44); Carbon Dioxide 25 mmol/L (22-29); Chloride 101 mmol/L (98-107); Glucose 116 mg/dL (70-105); Potassium 4.3 mmol/L (3.5-5.1); Sodium 132 mmol/L (136-145)
[2021-01-21] MEDS: Saccharomyces boulardii 250 MG CAP PO SCH (08:03)
[2021-01-21] MEDS: Famotidine 20 MG TAB PO SCH ×2 (08:03→21:31)
[2021-01-21] MEDS: Azithromycin 250 MG TAB PO SCH (08:04)
[2021-01-21] MEDS: Enoxaparin Sodium 40 MG/0.4 ML SYRINGE SC SCH (08:04)
[2021-01-21] MEDS: Folic Acid 1 MG TAB PO SCH (08:04)
[2021-01-21] MEDS: Thiamine 100 MG TAB PO SCH (08:04)
[2021-01-21] MEDS: metFORMIN 500 MG TAB PO SCH ×2 (08:04→17:17)
[2021-01-21] MEDS: Nystatin 500,000 UNITS/5 ML UDCUP SSP SCH ×4 (08:11→21:33)
[2021-01-21 09:18] LABS: #Eosinphils 0.3 thou/uL (0.0-0.7); #Lymphocytes 1.4 thou/uL (1.20-3.40); #Monocytes 0.6 thou/uL (0.11-0.59); #Neutrophils 9.2 thou/uL (1.40-6.50); %Basophils 0.4 % (0.0-1.0); %Eosinophils 2.3 % (0.0-10.0); %Lymphocytes 11.9 % (21.0-51.0); %Monocytes 5.2 % (0.0-10.0); %Neutrophils 80.2 % (42.0-75.0); Hemoglobin 12.9 g/dL (12.0-16.0); Mean Corpuscular HGB CONC 32.4 g/dL (32.0-36.0); Mean Corpuscular Hemoglobin 28.8 pg (27.0-31.0); Platelet Count 290 thou/uL (130-400); RBC Distribution Width 12.9 % (11.5-14.5); Red Blood Cell (RBC) Count 4.47 mill/uL (4.20-5.40); White Blood Cell (WBC) Count 11.5 thou/uL (4.8-10.8)
[2021-01-21] MEDS: Cefepime 2 GM in Sodium Chloride 0.9% 100 ML IVPB SCH ×2 (11:49→21:36)
[2021-01-21] MEDS: HumaLOG 300 UNITS/3 ML VIAL SC PRN (11:58)
[2021-01-21] MEDS: HYDROcodone/Acetaminophen 5/325 mg Tablet PO PRN ×2 (13:48→21:32)
[2021-01-21] MEDS: Lorazepam 1 MG TAB PO PRN (21:32)
[2021-01-21] MEDS: Benzonatate 100 MG CAP PO PRN (21:33)
[2021-01-22] MEDS: Nicotine 21 MG PATCH TD SCH (06:05)
[2021-01-22] MEDS: Enoxaparin Sodium 40 MG/0.4 ML SYRINGE SC SCH (08:15)
[2021-01-22] MEDS: metFORMIN 500 MG TAB PO SCH ×2 (08:15→16:33)
[2021-01-22] MEDS: Folic Acid 1 MG TAB PO SCH (08:16)
[2021-01-22] MEDS: Saccharomyces boulardii 250 MG CAP PO SCH (08:16)
[2021-01-22] MEDS: Famotidine 20 MG TAB PO SCH ×2 (08:16→22:15)
[2021-01-22] MEDS: Nystatin 500,000 UNITS/5 ML UDCUP SSP SCH ×4 (08:16→22:20)
[2021-01-22] MEDS: Thiamine 100 MG TAB PO SCH (08:17)
[2021-01-22] MEDS: Cefepime 2 GM in Sodium Chloride 0.9% 100 ML IVPB SCH ×3 (11:50→17:54)
[2021-01-22] MEDS: Lorazepam 1 MG TAB PO PRN ×2 (12:34→22:16)
[2021-01-22] MEDS: HYDROcodone/Acetaminophen 5/325 mg Tablet PO PRN ×2 (13:31→22:15)
[2021-01-22] MEDS: Benzonatate 100 MG CAP PO PRN (13:32)
[2021-01-22] MEDS: HumaLOG 300 UNITS/3 ML VIAL SC PRN (16:33)
[2021-01-22] MEDS: GUAIFENESIN SF SOLN 200 MG/10 ML UDCUP PO PRN (22:15)
[2021-01-23] MEDS: Cefepime 2 GM in Sodium Chloride 0.9% 100 ML IVPB SCH ×2 (06:39→16:59)
[2021-01-23] MEDS: Nicotine 21 MG PATCH TD SCH (06:41)
[2021-01-23] MEDS: Ondansetron ODT 4 MG TAB PO PRN (06:51)
[2021-01-23] MEDS: Acetaminophen 325 MG TAB PO PRN (06:52)
[2021-01-23 07:10] LABS: #Eosinphils 0.4 thou/uL (0.0-0.7); #Lymphocytes 1.8 thou/uL (1.20-3.40); #Monocytes 0.8 thou/uL (0.11-0.59); #Neutrophils 6.8 thou/uL (1.40-6.50); %Basophils 0.5 % (0.0-1.0); %Eosinophils 4.3 % (0.0-10.0); %Monocytes 8.2 % (0.0-10.0); Hemoglobin 12.3 g/dL (12.0-16.0); Mean Corpuscular HGB CONC 32.8 g/dL (32.0-36.0); Mean Corpuscular Hemoglobin 29.3 pg (27.0-31.0); Mean Corpuscular Volume 89.4 fL (78.0-98.0); Mean Platelet Volume 7.5 fL (7.4-10.4); Platelet Count 295 thou/uL (130-400); RBC Distribution Width 12.9 % (11.5-14.5); Red Blood Cell (RBC) Count 4.18 mill/uL (4.20-5.40); White Blood Cell (WBC) Count 9.8 thou/uL (4.8-10.8)
[2021-01-23] MEDS: Famotidine 20 MG TAB PO SCH ×2 (08:06→20:55)
[2021-01-23] MEDS: Nystatin 500,000 UNITS/5 ML UDCUP SSP SCH ×4 (08:06→20:59)
[2021-01-23] MEDS: Enoxaparin Sodium 40 MG/0.4 ML SYRINGE SC SCH (08:06)
[2021-01-23] MEDS: Saccharomyces boulardii 250 MG CAP PO SCH (08:06)
[2021-01-23] MEDS: metFORMIN 500 MG TAB PO SCH ×2 (08:06→16:59)
[2021-01-23] MEDS: Folic Acid 1 MG TAB PO SCH (08:06)
[2021-01-23] MEDS: Thiamine 100 MG TAB PO SCH (08:07)
[2021-01-23 10:16] LABS: Fungus Stain Final report (.)
[2021-01-23 10:37] LABS: Anion Gap 11 mmol/L (10-20); BUN (Urea Nitrogen) 6 mg/dL (9.8-20.1); Calc. Creatinine Clearance 137 mL/min (70-130); Calcium 9.3 mg/dL (7.8-10.44); Carbon Dioxide 31 mmol/L (22-29); Chloride 100 mmol/L (98-107); Glucose 174 mg/dL (70-105); Potassium 4.6 mmol/L (3.5-5.1); Sodium 137 mmol/L (136-145)
[2021-01-23] MEDS: Lorazepam 1 MG TAB PO PRN (20:55)
[2021-01-23] MEDS: HYDROcodone/Acetaminophen 5/325 mg Tablet PO PRN (20:56)
[2021-01-23] MEDS: GUAIFENESIN SF SOLN 200 MG/10 ML UDCUP PO PRN (20:58)
[2021-01-24] MEDS: Cefepime 2 GM in Sodium Chloride 0.9% 100 ML IVPB SCH ×2 (06:17→17:56)
[2021-01-24] MEDS: Nicotine 21 MG PATCH TD SCH (06:18)
[2021-01-24 06:43] LABS: #Eosinphils 0.4 thou/uL (0.0-0.7); #Lymphocytes 1.7 thou/uL (1.20-3.40); #Neutrophils 7.3 thou/uL (1.40-6.50); %Basophils 0.4 % (0.0-1.0); %Eosinophils 3.6 % (0.0-10.0); %Lymphocytes 16.2 % (21.0-51.0); %Monocytes 9.1 % (0.0-10.0); %Neutrophils 70.6 % (42.0-75.0); Hemoglobin 11.9 g/dL (12.0-16.0); Mean Corpuscular HGB CONC 31.5 g/dL (32.0-36.0); Mean Corpuscular Hemoglobin 28.6 pg (27.0-31.0); Mean Corpuscular Volume 90.8 fL (78.0-98.0); Mean Platelet Volume 7.2 fL (7.4-10.4); Platelet Count 329 thou/uL (130-400); Red Blood Cell (RBC) Count 4.16 mill/uL (4.20-5.40); White Blood Cell (WBC) Count 10.4 thou/uL (4.8-10.8)
[2021-01-24 07:04] LABS: Anion Gap 11 mmol/L (10-20); BUN (Urea Nitrogen) 6 mg/dL (9.8-20.1); CRP (Inflammatory) 9.39 mg/dL (= or < 0.5); Calc. Creatinine Clearance 144 mL/min (70-130); Calcium 9.2 mg/dL (7.8-10.44); Carbon Dioxide 29 mmol/L (22-29); Chloride 99 mmol/L (98-107); Glucose 128 mg/dL (70-105); Potassium 4.2 mmol/L (3.5-5.1); Sodium 135 mmol/L (136-145)
[2021-01-24] MEDS: metFORMIN 500 MG TAB PO SCH ×2 (09:03→16:53)
[2021-01-24] MEDS: Enoxaparin Sodium 40 MG/0.4 ML SYRINGE SC SCH (09:04)
[2021-01-24] MEDS: Saccharomyces boulardii 250 MG CAP PO SCH (09:09)
[2021-01-24] MEDS: Famotidine 20 MG TAB PO SCH ×2 (09:09→20:33)
[2021-01-24] MEDS: Nystatin 500,000 UNITS/5 ML UDCUP SSP SCH ×4 (09:10→20:33)
[2021-01-24] MEDS: Folic Acid 1 MG TAB PO SCH (09:10)
[2021-01-24] MEDS: Thiamine 100 MG TAB PO SCH (09:10)
[2021-01-24] MEDS ORDERED: Fentanyl 100 MCG/2 ML VIAL ONE ×3 (09:58→13:10)
[2021-01-24] MEDS ORDERED: Bupivacaine PF 0.5% 30 ML VIAL ONE (10:25)
[2021-01-24] MEDS ORDERED: Dexamethasone 20 MG/5 ML VIAL ONE (11:13)
[2021-01-24] MEDS ORDERED: Ondansetron PF 4 MG/2 ML Vial ONE (11:13)
[2021-01-24] MEDS ORDERED: PHENYLEPHRINE-NS 100 MCG/ML 10 ML SYRINGE ONE (11:13)
[2021-01-24] MEDS ORDERED: Rocuronium Bromide 10 MG/ML (10ML VIAL) ONE (11:13)
[2021-01-24] MEDS ORDERED: PROPOFOL 200 MG/20 ML VIAL ONE (11:13)
[2021-01-24] MEDS ORDERED: Succinylcholine 200 MG/10 ml SYRINGE FS ONE (11:13)
[2021-01-24] MEDS ORDERED: Lidocaine 1% PF 5 ML VIAL ONE (11:13)
[2021-01-24] MEDS ORDERED: SUGAMMADEX SODIUM 200 MG/2 ML VIAL ONE (12:13)
[2021-01-24] MEDS ORDERED: HYDROmorphone 2 MG/ML VIAL SLOW IVP PRN (13:13)
[2021-01-24] MEDS ORDERED: Naloxone HCl 0.4 mg/ml Vial IV PRN (13:13)
[2021-01-24] MEDS ORDERED: Meperidine HCl/PF 25 MG/ML VIAL SLOW IVP PRN (13:13)
[2021-01-24] MEDS ORDERED: diphenhydrAMINE 25 MG CAP PO PRN (13:13)
[2021-01-24] MEDS ORDERED: diphenhydrAMINE 50 MG/ML VIAL IVP PRN (13:13)
[2021-01-24] MEDS ORDERED: diphenhydrAMINE 50 MG/ML VIAL IM PRN (13:13)
[2021-01-24] MEDS ORDERED: Promethazine HCl 25 MG/ML VIAL SLOW IVP PRN (13:13)
[2021-01-24] MEDS ORDERED: Ondansetron PF 4 MG/2 ML Vial IVP PRN (13:13)
[2021-01-24] MEDS ORDERED: Zolpidem Tartrate 5 MG TAB PO PRN (13:13)
[2021-01-24] MEDS ORDERED: Promethazine HCl 25 MG/ML VIAL IM PRN ×2 (13:13)
[2021-01-24] MEDS ORDERED: Communication Order-Pharmacy FS SCH (13:15)
[2021-01-24] MEDS ORDERED: HYDROmorphone 0.5 MG/0.5 ML SYRINGE ONE ×2 (13:19→13:33)
[2021-01-24] MEDS: HumaLOG 300 UNITS/3 ML VIAL SC PRN ×2 (16:54→20:59)
[2021-01-24] MEDS: Piperacillin/Tazobactam 3.375 GM in Sodium Chloride 0.9% 100 ML IVPB SCH ×2 (17:56→23:40)
[2021-01-25 05:36] LABS: #Lymphocytes 1.3 thou/uL (1.20-3.40); #Monocytes 0.9 thou/uL (0.11-0.59); #Neutrophils 13.1 thou/uL (1.40-6.50); %Basophils 0.2 % (0.0-1.0); %Eosinophils 0.1 % (0.0-10.0); %Lymphocytes 8.5 % (21.0-51.0); %Monocytes 5.7 % (0.0-10.0); %Neutrophils 85.5 % (42.0-75.0); Hemoglobin 11.6 g/dL (12.0-16.0); Mean Corpuscular HGB CONC 31.7 g/dL (32.0-36.0); Mean Corpuscular Hemoglobin 28.6 pg (27.0-31.0); Mean Corpuscular Volume 90.2 fL (78.0-98.0); Mean Platelet Volume 7.5 fL (7.4-10.4); Platelet Count 388 thou/uL (130-400); RBC Distribution Width 13.1 % (11.5-14.5); Red Blood Cell (RBC) Count 4.05 mill/uL (4.20-5.40); White Blood Cell (WBC) Count 15.3 thou/uL (4.8-10.8)
[2021-01-25 05:56] LABS: Anion Gap 11 mmol/L (10-20); BUN (Urea Nitrogen) 9 mg/dL (9.8-20.1); Calc. Creatinine Clearance 139 mL/min (70-130); Calcium 9.3 mg/dL (7.8-10.44); Carbon Dioxide 29 mmol/L (22-29); Chloride 96 mmol/L (98-107); Glucose 212 mg/dL (70-105); Potassium 4.6 mmol/L (3.5-5.1); Sodium 131 mmol/L (136-145)
[2021-01-25] MEDS: Ondansetron ODT 4 MG TAB PO PRN (06:23)
[2021-01-25] MEDS: Cefepime 2 GM in Sodium Chloride 0.9% 100 ML IVPB SCH (06:23)
[2021-01-25] MEDS: Piperacillin/Tazobactam 3.375 GM in Sodium Chloride 0.9% 100 ML IVPB SCH ×3 (06:23→17:13)
[2021-01-25] MEDS: Nicotine 21 MG PATCH TD SCH (06:23)
[2021-01-25] MEDS ORDERED: Mag-Al Plus 1200 MG/1200 MG/120 MG/30 ML UDCUP PO PRN (08:07)
[2021-01-25] MEDS: Saccharomyces boulardii 250 MG CAP PO SCH (08:16)
[2021-01-25] MEDS: Folic Acid 1 MG TAB PO SCH (08:16)
[2021-01-25] MEDS: Enoxaparin Sodium 40 MG/0.4 ML SYRINGE SC SCH (08:16)
[2021-01-25] MEDS: metFORMIN 500 MG TAB PO SCH ×2 (08:16→17:12)
[2021-01-25] MEDS: Famotidine 20 MG TAB PO SCH ×2 (08:16→22:03)
[2021-01-25] MEDS: Senokot S 8.6-50 MG TAB PO PRN (08:16)
[2021-01-25] MEDS: predniSONE 20 MG TAB PO SCH (08:16)
[2021-01-25] MEDS: Thiamine 100 MG TAB PO SCH (08:17)
[2021-01-25] MEDS: Nystatin 500,000 UNITS/5 ML UDCUP SSP SCH ×4 (08:24→22:03)
[2021-01-25] MEDS: fentaNYL Citrate/PF 2,000 MCG in Sodium Chloride 0.9% 60 ML IV PRN (12:14)
[2021-01-25] MEDS: HumaLOG 300 UNITS/3 ML VIAL SC PRN ×2 (14:35→17:13)
[2021-01-25] MEDS: Simethicone Chewable 80 MG TAB PO PRN (15:20)
[2021-01-25] MEDS: Vancomycin HCl 1.75 GM in Sodium Chloride 0.9% 500 ML IVPB SCH (15:20)
[2021-01-25] MEDS ORDERED: VANCOMYCIN 1.25 GM/250 ML BAG IVPB SCH (21:00)
[2021-01-26] MEDS: Piperacillin/Tazobactam 3.375 GM in Sodium Chloride 0.9% 100 ML IVPB SCH ×4 (00:15→17:34)
[2021-01-26] MEDS: Simethicone Chewable 80 MG TAB PO PRN ×2 (01:00→08:17)
[2021-01-26] MEDS: Senokot S 8.6-50 MG TAB PO PRN (01:00)
[2021-01-26] MEDS: Vancomycin HCl 1.75 GM in Sodium Chloride 0.9% 500 ML IVPB SCH ×2 (01:29→14:16)
[2021-01-26] MEDS: Nicotine 21 MG PATCH TD SCH (06:01)
[2021-01-26 07:55] LABS: #Eosinphils 0.2 thou/uL (0.0-0.7); #Neutrophils 10.7 thou/uL (1.40-6.50); %Basophils 0.2 % (0.0-1.0); %Eosinophils 1.6 % (0.0-10.0); %Lymphocytes 7.5 % (21.0-51.0); %Monocytes 7.6 % (0.0-10.0); %Neutrophils 83.2 % (42.0-75.0); Hemoglobin 11.9 g/dL (12.0-16.0); Mean Corpuscular HGB CONC 31.7 g/dL (32.0-36.0); Mean Corpuscular Hemoglobin 28.9 pg (27.0-31.0); Mean Corpuscular Volume 91.1 fL (78.0-98.0); Mean Platelet Volume 7.3 fL (7.4-10.4); Platelet Count 475 thou/uL (130-400); RBC Distribution Width 13.1 % (11.5-14.5); Red Blood Cell (RBC) Count 4.11 mill/uL (4.20-5.40); White Blood Cell (WBC) Count 12.8 thou/uL (4.8-10.8)
[2021-01-26 08:17] LABS: Anion Gap 11 mmol/L (10-20); BUN (Urea Nitrogen) 9 mg/dL (9.8-20.1); Calc. Creatinine Clearance 120 mL/min (70-130); Calcium 9.5 mg/dL (7.8-10.44); Carbon Dioxide 31 mmol/L (22-29); Chloride 98 mmol/L (98-107); Glucose 143 mg/dL (70-105); Potassium 4.6 mmol/L (3.5-5.1); Sodium 135 mmol/L (136-145)
[2021-01-26] MEDS: Enoxaparin Sodium 40 MG/0.4 ML SYRINGE SC SCH (08:17)
[2021-01-26] MEDS: Bisacodyl 10 MG SUPP PR PRN (08:18)
[2021-01-26] MEDS: predniSONE 20 MG TAB PO SCH (09:40)
[2021-01-26] MEDS: Folic Acid 1 MG TAB PO SCH (09:40)
[2021-01-26] MEDS: metFORMIN 500 MG TAB PO SCH ×2 (09:40→16:32)
[2021-01-26] MEDS: Saccharomyces boulardii 250 MG CAP PO SCH (09:40)
[2021-01-26] MEDS: Nystatin 500,000 UNITS/5 ML UDCUP SSP SCH ×4 (09:40→21:00)
[2021-01-26] MEDS: Famotidine 20 MG TAB PO SCH ×2 (09:40→20:59)
[2021-01-26] MEDS: Thiamine 100 MG TAB PO SCH (09:41)
[2021-01-26] MEDS: Metoclopramide HCl 10 MG/2 ML VIAL IVP SCH ×2 (11:16→16:31)
[2021-01-26] MEDS: fentaNYL Citrate/PF 2,000 MCG in Sodium Chloride 0.9% 60 ML IV PRN (16:32)
[2021-01-27] MEDS: Metoclopramide HCl 10 MG/2 ML VIAL IVP SCH ×5 (00:21→23:52)
[2021-01-27] MEDS: Piperacillin/Tazobactam 3.375 GM in Sodium Chloride 0.9% 100 ML IVPB SCH ×3 (00:21→11:41)
[2021-01-27 01:31] LABS: Vancomycin, Trough 21.3 ug/mL
[2021-01-27] MEDS: Vancomycin HCl 1.75 GM in Sodium Chloride 0.9% 500 ML IVPB SCH (03:03)
[2021-01-27] MEDS: Nicotine 21 MG PATCH TD SCH (05:35)
[2021-01-27] MEDS: Saccharomyces boulardii 250 MG CAP PO SCH (08:12)
[2021-01-27] MEDS: Thiamine 100 MG TAB PO SCH (08:12)
[2021-01-27] MEDS: Enoxaparin Sodium 40 MG/0.4 ML SYRINGE SC SCH (08:12)
[2021-01-27] MEDS: Folic Acid 1 MG TAB PO SCH (08:12)
[2021-01-27] MEDS: predniSONE 20 MG TAB PO SCH (08:12)
[2021-01-27] MEDS: Famotidine 20 MG TAB PO SCH ×2 (08:12→20:38)
[2021-01-27] MEDS: metFORMIN 500 MG TAB PO SCH ×2 (08:12→16:28)
[2021-01-27] MEDS: Nystatin 500,000 UNITS/5 ML UDCUP SSP SCH ×4 (08:13→20:38)
[2021-01-27] MEDS ORDERED: Vancomycin HCl 1.5 GM in Sodium Chloride 0.9% 250 ML 300 ML IVPB SCH (14:00)
[2021-01-27] MEDS: HumaLOG 300 UNITS/3 ML VIAL SC PRN (16:28)
[2021-01-27] MEDS: Amoxicillin/Potassium Clav 875 MG TAB PO SCH (20:38)
[2021-01-28] MEDS: Nicotine 21 MG PATCH TD SCH (05:23)
[2021-01-28] MEDS: fentaNYL Citrate/PF 2,000 MCG in Sodium Chloride 0.9% 60 ML IV PRN (05:34)
[2021-01-28] MEDS: Metoclopramide HCl 10 MG/2 ML VIAL IVP SCH (05:34)
[2021-01-28] MEDS: metFORMIN 500 MG TAB PO SCH ×2 (08:03→16:39)
[2021-01-28] MEDS: Folic Acid 1 MG TAB PO SCH (08:03)
[2021-01-28] MEDS: Amoxicillin/Potassium Clav 875 MG TAB PO SCH ×2 (08:03→20:27)
[2021-01-28] MEDS: predniSONE 20 MG TAB PO SCH (08:03)
[2021-01-28] MEDS: Saccharomyces boulardii 250 MG CAP PO SCH (08:03)
[2021-01-28] MEDS: Thiamine 100 MG TAB PO SCH (08:03)
[2021-01-28] MEDS: Famotidine 20 MG TAB PO SCH ×2 (08:03→20:27)
[2021-01-28] MEDS: Enoxaparin Sodium 40 MG/0.4 ML SYRINGE SC SCH (08:03)
[2021-01-28] MEDS: Nystatin 500,000 UNITS/5 ML UDCUP SSP SCH ×4 (08:05→20:27)
[2021-01-28] MEDS: Acetaminophen 325 MG TAB PO PRN (08:06)
[2021-01-28 09:12] LABS: Fungus Stain Final report (.)
[2021-01-28] MEDS: HYDROcodone/Acetaminophen 5/325 mg Tablet PO PRN (13:02)
[2021-01-28] MEDS: Polyethylene Glycol 3350 17 GM Packet PO SCH (13:07)
[2021-01-28] MEDS: Ibuprofen 200 MG TAB PO SCH ×3 (13:16→20:28)
[2021-01-28] MEDS: HumaLOG 300 UNITS/3 ML VIAL SC PRN ×2 (17:08→20:36)
[2021-01-29] MEDS: Bisacodyl 10 MG SUPP PR PRN (03:02)
[2021-01-29] MEDS: Senokot S 8.6-50 MG TAB PO PRN (05:04)
[2021-01-29] MEDS: Ibuprofen 200 MG TAB PO SCH ×3 (05:05→17:44)
[2021-01-29] MEDS: Simethicone Chewable 80 MG TAB PO PRN ×2 (05:06→13:02)
[2021-01-29] MEDS: Nicotine 21 MG PATCH TD SCH (05:08)
[2021-01-29] MEDS ORDERED: Morphine 4 MG/ML VIAL SLOW IVP SCH (06:15)
[2021-01-29] MEDS: Nystatin 500,000 UNITS/5 ML UDCUP SSP SCH ×4 (09:26→20:10)
[2021-01-29] MEDS: predniSONE 5 MG TAB PO SCH (09:26)
[2021-01-29] MEDS: metFORMIN 500 MG TAB PO SCH ×2 (09:26→17:33)
[2021-01-29] MEDS: Enoxaparin Sodium 40 MG/0.4 ML SYRINGE SC SCH (09:26)
[2021-01-29] MEDS: Saccharomyces boulardii 250 MG CAP PO SCH (09:26)
[2021-01-29] MEDS: Amoxicillin/Potassium Clav 875 MG TAB PO SCH ×2 (09:27→20:10)
[2021-01-29] MEDS: Famotidine 20 MG TAB PO SCH ×2 (09:27→20:10)
[2021-01-29] MEDS: Folic Acid 1 MG TAB PO SCH (09:27)
[2021-01-29] MEDS: Polyethylene Glycol 3350 17 GM Packet PO SCH (09:27)
[2021-01-29] MEDS: HYDROcodone/Acetaminophen 5/325 mg Tablet PO PRN ×2 (09:29→17:43)
[2021-01-29] MEDS: Lorazepam 1 MG TAB PO PRN (20:10)
[2021-01-30] MEDS: Ibuprofen 200 MG TAB PO SCH ×2 (00:16→05:09)
[2021-01-30] MEDS: Nicotine 21 MG PATCH TD SCH (05:10)
[2021-01-30] MEDS: HYDROcodone/Acetaminophen 5/325 mg Tablet PO PRN (05:15)
[2021-01-30] MEDS ORDERED: Lorazepam 1 MG TAB PO PRN (08:28)
[2021-01-30] MEDS: Enoxaparin Sodium 40 MG/0.4 ML SYRINGE SC SCH (08:59)
[2021-01-30] MEDS: Famotidine 20 MG TAB PO SCH (09:00)
[2021-01-30] MEDS: Folic Acid 1 MG TAB PO SCH (09:00)
[2021-01-30] MEDS: Saccharomyces boulardii 250 MG CAP PO SCH (09:00)
[2021-01-30] MEDS: metFORMIN 500 MG TAB PO SCH (09:00)
[2021-01-30] MEDS: Amoxicillin/Potassium Clav 875 MG TAB PO SCH (09:00)
[2021-01-30] MEDS: predniSONE 5 MG TAB PO SCH (09:00)
[2021-01-30] MEDS: Polyethylene Glycol 3350 17 GM Packet PO SCH (09:00)
[2021-01-30] MEDS: Nystatin 500,000 UNITS/5 ML UDCUP SSP SCH (09:11)
[2021-01-30 11:16] VITALS: BP 136/87; TEMP 97.9
== END 2021-01-30 12:10 | disposition home or self-care (01) | DRG 163 ==
LOC: ERS 00:02 → 2NO 02:15 → T4-A 01-19 12:33 → CCU 01-24 14:20 → SJJU 01-25 10:45
PROVIDERS: ADMIT Internal Medicine; ATTEND Internal Medicine
PROC: 0W9B3ZZ Drainage of Left Pleural Cavity, Percutaneous Approach (ICD-10-PCS; 2021-01-18)
PROC: 0BNL0ZZ Release Left Lung, Open Approach (ICD-10-PCS; principal; 2021-01-24)
DX: J86.9 Pyothorax without fistula (principal); J96.01 Acute respiratory failure with hypoxia; J18.9 Pneumonia, unspecified organism; E87.1 Hypo-osmolality and hyponatremia; B37.0 Candidal stomatitis; J91.8 Pleural effusion in other conditions classified elsewhere; J44.0 Chronic obstructive pulmonary disease with (acute) lower respiratory infection; Z20.822 Contact with and (suspected) exposure to COVID-19; F31.9 Bipolar disorder, unspecified; F17.210 Nicotine dependence, cigarettes, uncomplicated; E66.9 Obesity, unspecified; F15.10 Other stimulant abuse, uncomplicated; J45.40 Moderate persistent asthma, uncomplicated; F41.9 Anxiety disorder, unspecified; Z79.84 Long term (current) use of oral hypoglycemic drugs; Z79.899 Other long term (current) drug therapy; Z98.51 Tubal ligation status; Z90.710 Acquired absence of both cervix and uterus; Z71.6 Tobacco abuse counseling; Z68.33 Body mass index [BMI] 33.0-33.9, adult
CPT/HCPCS: 0240U; 36415; 36416; 71045; 71046; 71260; 74018; 77002; 80048; 80053; 80202; 81003; 82150; 82945; 83036; 83605; 83615; 83880; 83986; 84157; 85007; 85025; 85027; 85610; 85730; 86140; 86850; 86900; 86901; 87040; 87070; 87086; 87102; 87116; 87205; 87206; 87449; 87899; 88112; 88305; 89051; 93005; 94640; 96365; 96367; 96375; J0692; J0696; J1100; J1170; J1650; J1815; J1885; J2270; J2405; J2543; J2704; J2765; J3010; J3370; J3490; J7030; J7512; J7620; Q0162; Q9967; S0020